=== PATIENT | female | born 1945 | race Hispanic/Latino ===

== ENCOUNTER 2025-06-09 19:37 | Emergency (ER) | payer MEDICARE, OTHER ==
[~2025-06-09] VITALS: Ht 154.9 cm; Wt 67.6 kg
[2025-06-09 19:43] VITALS: PULSE 81; RESP 18; TEMP 98.9
[2025-06-09] MEDS ORDERED: LOSARTAN POTASS50 MG PO (20:56)
[2025-06-09 20:58] VITALS: BP 169/85; PULSE 79; RESP 18; TEMP 98.6; O2SAT 97
== END 2025-06-09 21:00 | disposition home or self-care (01) ==
LOC: FSED 19:44
DX: I10 Essential (primary) hypertension (principal); E78.5 Hyperlipidemia, unspecified
CPT/HCPCS: 80048; 81003; 84484; 85025; 93005; 99284